=== PATIENT | female | born 1985 | race Hispanic/Latino ===

== ENCOUNTER 2018-01-17 15:26 | Emergency (ER) | payer SELFPAY | END 2018-01-17 16:22 | disposition home or self-care (01) | LOC: ERS 15:26 | DX: B34.9 Viral infection, unspecified (principal); F17.210 Nicotine dependence, cigarettes, uncomplicated | CPT/HCPCS: 99283 ==

== ENCOUNTER 2019-03-21 14:17 | Emergency (ER) | payer SELFPAY ==
--- NOTE | 2019-03-21 14:32 | RAD ---
Radiograph left wrist 3 views: DATE: 03/21/2019 HISTORY: 33-year-old female with nontraumatic left wrist pain COMPARISON: None available FINDINGS: The ulnar side of the distal radial articular surface is tilted proximally. There is no joint space n arrowing. No erosions or large osteophytosis. No subchondral cysts. No fracture. No soft tissue calcifications. IMPRESSION: Mild to moderate deformity at ulnar side of distal radial articular surface. Possibilities include se quela of old, healed fracture versus mild Madelung deformity.
== END 2019-03-21 15:00 | disposition home or self-care (01) ==
LOC: ERS 14:17
DX: S60.212A Contusion of left wrist, initial encounter (principal); F17.210 Nicotine dependence, cigarettes, uncomplicated; X58.XXXA Exposure to other specified factors, initial encounter

== ENCOUNTER 2019-08-07 12:54 | Emergency (ER) | payer SELFPAY ==
[2019-08-07] MEDS ORDERED: Acetaminophen 500 MG TAB ONE (13:21)
--- NOTE | 2019-08-07 13:42 | RAD ---
EXAM: Chest PA and lateral: HISTORY: Cough COMPARISON: 02/19/2015 FINDINGS: Heart: Normal cardiac silhouette. Epicardial fat pad adjacent to the cardiac apex. Aorta: Unremarkable Pulmonary vessels: Normal Costophrenic angles: Costophrenic angles are clear. Lungs: No mass or consolidation Pneumothorax: No pneumothorax Osseous structures: No osseous abnormalities IMPRESSION: No acute cardiopulmonary process
--- NOTE | 2019-08-13 06:11 | PQF ---
[facility] POST DISCHARGE CLINICAL DOCUMENTATION IMPROVEMENT CLARIFICATION FORM l Todays Date: 08/10/2019 l Patients Name Racquel Pandey l l Admit Date 08/07/19 l Disch Date 08/07/19 [employer] Machine Operator Name Leidy Freedman Email: [email or web address] Cell: [phone] To be completed by [employer] Machine Operator: Present Clinical Indicators - Signs / Symptoms Results and Location in Medical Record [ ] Documentation of: [ ] [ ] Documentation of: [ ] [ ] Documentation of: [ ] [ ] Documentation of: [ ] [ ] Risks [ ] [ ] [ ] Treatment [ ] Bronchitis Query for Specificity of Acute or Chronic of Bronchitis. [ ] [ ] To be completed by Physician: DR. Alex DO, George The documentation in this patients record requires clarification to ensure coding compliance and accuracy. Check the appropriate box and include in your discharge summary. [ ] [ ] [ ] [ ] Please check this box if this does not apply to this patient [ ] Unable to determine [ ] Other diagnosis: Review the following information and exercise your independent professional judgment in responding to the clarification. Based upon the clinical findings, risk factors, and treatment, please clarify if you are treating one of the above probable or suspected diagnoses. Physician Signature: Date Time ULISESD
== END 2019-08-07 14:00 | disposition home or self-care (01) ==
LOC: ERS 12:54
DX: J40 Bronchitis, not specified as acute or chronic (principal); H66.42 Suppurative otitis media, unspecified, left ear; F17.210 Nicotine dependence, cigarettes, uncomplicated
CPT/HCPCS: 71046; 94640; J7620

== ENCOUNTER 2019-12-02 00:39 | Emergency (ER) | payer MEDICAID, SELFPAY ==
--- NOTE | 2019-12-02 07:58 | RAD ---
RADIOGRAPH CHEST 2 VIEWS: DATE: 12/02/2019 HISTORY: 34-year-old female with cough and chest pain FINDINGS: There is no airspace density, pulmonary edema, pleural effusion, pneumothorax, or cardiomegaly. IMPRESSION: No acute cardiopulmonary findings.
== END 2019-12-02 03:35 | disposition home or self-care (01) ==
LOC: ERS 00:39
DX: M94.0 Chondrocostal junction syndrome [Tietze] (principal); F17.210 Nicotine dependence, cigarettes, uncomplicated
CPT/HCPCS: 71046

== ENCOUNTER 2021-01-20 14:29 | Emergency (ER) | payer OTHER ==
[2021-01-20] MEDS ORDERED: Boostrix 0.5 ML (Tdap) VIAL ONE (17:26)
[2021-01-20] MEDS ORDERED: traMADol HCl 50 MG TAB ONE (17:26)
== END 2021-01-20 17:52 | disposition home or self-care (01) ==
LOC: ERS 14:29
DX: S91.332A Puncture wound without foreign body, left foot, initial encounter (principal); W22.8XXA Striking against or struck by other objects, initial encounter; F17.210 Nicotine dependence, cigarettes, uncomplicated
CPT/HCPCS: 90471; 90715

== ENCOUNTER 2021-03-16 14:22 | Emergency (ER) | payer OTHER ==
[2021-03-16] MEDS ORDERED: Ketorolac Tromethamine 30 MG/ML VIAL ONE (16:14)
== END 2021-03-16 16:52 | disposition home or self-care (01) ==
LOC: ERS 14:22
DX: K04.7 Periapical abscess without sinus (principal); L20.9 Atopic dermatitis, unspecified; F17.210 Nicotine dependence, cigarettes, uncomplicated
CPT/HCPCS: 96372; 99282; J1885

== ENCOUNTER 2021-09-14 12:11 | Emergency (ER) | payer OTHER ==
[2021-09-14] MEDS ORDERED: Dexamethasone 10 MG/ML VIAL ONE (12:50)
== END 2021-09-14 12:56 | disposition home or self-care (01) ==
LOC: ERS 12:11
DX: J06.9 Acute upper respiratory infection, unspecified (principal); H60.501 Unspecified acute noninfective otitis externa, right ear; F17.210 Nicotine dependence, cigarettes, uncomplicated
CPT/HCPCS: 99283; J1100

== ENCOUNTER 2023-01-25 11:57 | Emergency (ER) | payer OTHER | END 2023-01-25 13:24 | disposition home or self-care (01) | LOC: ERS 11:57 | DX: L30.9 Dermatitis, unspecified (principal); F17.210 Nicotine dependence, cigarettes, uncomplicated | CPT/HCPCS: 99282 ==

== ENCOUNTER 2023-06-10 08:35 | Emergency (ER) | payer OTHER | END 2023-06-10 09:03 | disposition home or self-care (01) | LOC: ERS 08:35 | DX: B34.9 Viral infection, unspecified (principal); H92.01 Otalgia, right ear; F17.210 Nicotine dependence, cigarettes, uncomplicated | CPT/HCPCS: 99283 ==

== ENCOUNTER 2023-12-15 17:52 | Emergency (ER) | payer OTHER ==
[2023-12-15] MEDS ORDERED: Acetaminophen 325 MG TAB ONE (18:02)
== END 2023-12-15 18:25 | disposition home or self-care (01) ==
LOC: ERS 17:52
DX: S43.005A Unspecified dislocation of left shoulder joint, initial encounter (principal); F17.290 Nicotine dependence, other tobacco product, uncomplicated; F17.210 Nicotine dependence, cigarettes, uncomplicated; V89.2XXA Person injured in unspecified motor-vehicle accident, traffic, initial encounter
CPT/HCPCS: 23650

== ENCOUNTER 2024-07-01 20:28 | Emergency (ER) | payer OTHER ==
[2024-07-01 21:52] LABS: #Basophils 0.05 10x3/uL (0.0-0.2); %Basophils 0.6 % (0.0-1.0); %Eosinophils 2.2 % (0.0-10.0); %Lymphocytes 26.8 % (21.0-51.0); %Monocytes 8.5 % (0.0-10.0); %Neutrophils 61.7 % (42.0-75.0); Hematocrit 37.6 % (36.0-47.0); Hemoglobin 12.1 g/dL (12.0-16.0); Mean Corpuscular HGB CONC 32.2 g/dL (32.0-36.0); Mean Corpuscular Hemoglobin 25.7 pg (27.0-31.0); Mean Corpuscular Volume 79.8 fL (78.0-98.0); Mean Platelet Volume 10.7 fL (7.4-10.4); Platelet Count 214 10x3/uL (130-400); RBC Distribution Width 15.5 % (11.5-14.5); Red Blood Cell (RBC) Count 4.71 mill/uL (4.20-5.40)
[2024-07-01 22:06] LABS: ALT (SGPT) 11 U/L (8-55); AST (SGOT) 13 U/L (5-34); Albumin 3.2 g/dL (3.5-5.0); Alkaline Phosphatase 61 U/L (40-110); Anion Gap 11 mmol/L (10-20); BUN (Urea Nitrogen) 8 mg/dL (7.0-18.7); Bilirubin, Total 0.2 mg/dL (0.2-1.2); Calc. Creatinine Clearance 0 mL/min (70-130); Carbon Dioxide 25 mmol/L (22-29); Chloride 109 mmol/L (98-107); Estimated GFR 76; Globulin 2.9 g/dL (2.4-3.5); Glucose 117 mg/dL (70-105); Potassium 3.8 mmol/L (3.5-5.1); Protein, Total 6.1 g/dL (6.0-8.3); Sodium 141 mmol/L (136-145)
[2024-07-01 22:09] LABS: Troponin I Less than 0.010 ng/mL (< 0.028)
[2024-07-01] MEDS ORDERED: Sulfameth/Trimethoprim DS 800-160mg TAB ONE (22:22)
== END 2024-07-01 22:28 | disposition home or self-care (01) ==
LOC: ERS 20:28
DX: R06.00 Dyspnea, unspecified (principal); L03.211 Cellulitis of face; F17.290 Nicotine dependence, other tobacco product, uncomplicated
CPT/HCPCS: 36415; 71045; 80053; 84484; 85025; 93005

== ENCOUNTER 2024-09-06 16:04 | Emergency (ER) | payer OTHER | END 2024-09-06 18:30 | disposition home or self-care (01) | LOC: ERS 16:04 | DX: R05.9 Cough, unspecified (principal); R09.81 Nasal congestion; R52 Pain, unspecified; F17.210 Nicotine dependence, cigarettes, uncomplicated; F17.290 Nicotine dependence, other tobacco product, uncomplicated | CPT/HCPCS: 87428; 99283 ==